=== PATIENT | male | born 1955 | race African-American/Black ===

== ENCOUNTER 2024-10-16 17:23 | Emergency (ER) | payer OTHER ==
[~2024-10-16] VITALS: Ht 182.9 cm; Wt 89.0 kg
[2024-10-16 17:27] VITALS: O2SAT 98
[2024-10-16] MEDS: SODIUM CHLORIDE 0.9% 1,000 ML IV ONE (18:14)
[2024-10-16 18:28] LABS: BASOPHILS % 0.3 % (0.0-2.0); EOSINOPHILS % 4.8 % (0.0-5.0); HEMATOCRIT. 38.8 % (42.0-52.0); HEMOGLOBIN. 12.7 g/dL (14.0-18.0); LYMPHOCYTES % 52.1 % (20.0-50.0); MEAN CORPUSCULAR HEMOGLOBIN 28.4 pg (28.0-32.0); MEAN CORPUSCULAR HGB CONC 32.7 g/dL (31.0-37.0); MEAN CORPUSCULAR VOLUME 86.9 fL (80.0-94.0); MONOCYTES % 9.7 % (2.0-8.0); NEUTROPHILS % 33.1 % (40.0-76.0); RED BLOOD CELL COUNT 4.46 mill/uL (4.7-6.1); RED CELL DISTRIBUTION WIDTH 13.8 % (11.6-14.6); WHITE BLOOD COUNT 4.6 x1000/uL (4.5-11.0)
[2024-10-16] MEDS: MECLIZINE 25MG TABLET PO ONE (18:30)
[2024-10-16] MEDS: ONDANSETRON HCL 4MG/2ML INJ IV STA (18:30)
[2024-10-16 18:34] LABS: CHLORIDE 107 mEq/L (98-107); SODIUM 140 mEq/L (136-145)
[2024-10-16 18:35] LABS: CALCIUM 8.8 mg/dL (8.7-10.4); CARBON DIOXIDE 26 mEq/L (21-32)
[2024-10-16 18:40] LABS: CREATININE 1.1 mg/dL (0.6-1.3); GLUCOSE 89 mg/dL (70-105); TROPONIN I HIGH SENSITIVITY 4 ng/L (3.0-53); UREA NITROGEN BLOOD 12 mg/dL (9-23)
[2024-10-16 18:46] LABS: DIFFERENTIAL COMMENT 1
[2024-10-16 19:32] VITALS: BP 131/85; PULSE 61; RESP 15; TEMP 36.44736; O2SAT 98
[2024-10-16 19:35] LABS: PLATELET 208 x1000/uL (130-400)
[2024-10-16] MEDS ORDERED: MECL-299 PO (20:29)
== END 2024-10-16 20:41 | disposition home or self-care (01) ==
LOC: ER 17:23
DX: H81.10 Benign paroxysmal vertigo, unspecified ear (principal); Z85.46 Personal history of malignant neoplasm of prostate; Z85.07 Personal history of malignant neoplasm of pancreas
CPT/HCPCS: 99285; 96374; 71045; 96361; 80048; 85025; 84484; 36415; 93005; J8597; J2405; J7030